=== PATIENT | male | born 1995 | race Caucasian/White ===

== ENCOUNTER 2017-01-05 19:05 | Emergency (ER) | payer BC, OTHER ==
[2017-01-05] MEDS ORDERED: DIPHTH,PERTUSS(ACELL),TET VAC 0.5 ML VIAL IM ONE ×2 (19:47→19:53)
--- NOTE | 2017-01-05 19:47 | ERNOTE ---
Medical Problem HPI - Narrative Date of Service: 01/05/17 - General Chief Complaint: Laceration Time Seen by Provider: 01/05/17 19:23 Source: patient Exam Limitations: no limitations - Immun/Allergies/Home Medications Immunizations: IMMUNIZATION HX Immunizations Up to Date No History of Influenza Vaccine No Hx Pneumococcal Vaccination No Allergies/Adverse Reactions: Allergies No Known Allergies Allergy (Verified 08/30/13 10:25) Home Medications: HOME MEDICATIONS Acetaminophen [Tylenol] 1,000 mg PO Q6H PRN 08/30/13 [Last Taken 08/30/13] Wheat Dextrin [Benefiber] 1 each PO DAILY 08/30/13 [Last Taken 08/30/13] Cephalexin Monohydrate [Keflex] 500 mg PO QID #20 capsule 01/05/17 [Last Taken Unknown] Ibuprofen [Motrin] 600 mg PO TID PRN #15 tablet 01/05/17 [Last Taken Unknown] - History of Present History Narrative: Patient was slicing ham when he accidentally sliced the medial aspect of the tip of his left ring finger. He cannot recall his last tetanus shot. He complains of pain in the left ring finger. - Patient's Past Medical History Patient History - Medical: Other Patient History - Cardiac/Respiratory: No pertinent hx Patient History - Cancer: No Hx of Cancer Patient History - Surgical Procedures: T & A Patient History - Other: None - Social History Living Situations: home Psych History: No pertinent hx Smoking Status: Never smoker Alcohol Use: none Drug Use: none - Immunizations Immunizations Up to Date: No Hx Pneumococcal Vaccination: No History of Influenza Vaccine: No Physical Exam - Physical Exam General Appearance: Present: wd/wn, alert, no apparent distress Head Exam: Present: normal inspection, no evidence of injury Eye Exam: Normal inspection: bilateral, PERRL: bilateral, EOMI: bilateral Respiratory: Present: no respiratory distress, normal breath sounds, no accessory muscle use, chest nontender, lungs clear Cardiovascular/Chest: Present: regular rate, rhythm, no murmur, normal peripheral pulses Extremity Exam: Present: other - patient does have a clean slice involving the epidermis of the medial aspect of the tip of his left ring finger without involvement of the nail. Neurological Exam: Present: alert, oriented, normal mood/affect, no motor/ sensory deficits Skin Exam: Present: normal color, warm/dry ED Progress - Vital Signs Patient's Vital Signs:: I have reviewed the patient's vital signs. Vital Signs: Vital Signs 01/05/17 19:10 Temperature 36.6 C Pulse Rate 101 H Respiratory 19 Rate Blood Pressure 122/67 O2 Sat by Pulse 98 Oximetry - Progress/Reassessment Chief Complaint: Laceration Plan - Plan Plan: Patient does have a superficial slicing of the epidermis only on the medial aspect of the left ring fingertip. This does not involve the nail. A digital block was done with 2 mL of lidocaine 2% without epi. Then 1 mL was injected in the actual area of the sloughing of the epidermis for local edema and hemostasis. A pressure dressing was applied to the patient's left ring finger tip and patient tolerated the procedure very well he will be sent home to follow up with orthotic clinic sometime in the next 2 days. Additionally he will be given Keflex 500 mg 4 times a day for 5 days and a tetanus shot Departure Clinical Impression: Laceration of finger of left hand Qualifiers: Encounter type: initial encounter Finger: ring finger Damage to nail status: without damage Foreign body presence: without foreign body Qualified Code(s): S61.215A - Laceration without foreign body of left ring finger without damage to nail, initial encounter - Departure Disposition: Home self-care Condition: Good Instructions: Laceration Care, Adult, [id number] Additional Instructions: Please follow-up with Ortho clinic in the next 48 hours or next week. Please do not get the laceration wet and keep the dressing on until seen by ortho Prescriptions: Cephalexin Monohydrate [Keflex] 500 mg PO QID #20 capsule Ibuprofen [Motrin] 600 mg PO TID PRN #15 tablet PRN Reason: Pain
[2017-01-05 20:07] VITALS: BP 124/68
== END 2017-01-05 20:00 | disposition home or self-care (01) ==
LOC: ER 19:05
PROC: 3E0T3BZ Introduction of Anesthetic Agent into Peripheral Nerves and Plexi, Percutaneous Approach (ICD-10-PCS; principal; 2017-01-05)
DX: S61.215A Laceration without foreign body of left ring finger without damage to nail, initial encounter (principal); W45.8XXA Other foreign body or object entering through skin, initial encounter; Y93.89 Activity, other specified; Y92.512 Supermarket, store or market as the place of occurrence of the external cause; Y99.0 Civilian activity done for income or pay; Z23 Encounter for immunization